=== PATIENT | male | born 1990 | race Caucasian/White ===

== ENCOUNTER 2016-09-30 14:28 | Emergency (ER) ==
[2016-09-30 14:37] VITALS: BP 135/76
[2016-09-30] MEDS ORDERED: XYLOCAINE-MPF 1% INJ ONE (16:30)
[2016-09-30] MEDS ORDERED: BOOSTRIX VACCINE IM ONE (16:32)
--- NOTE | 2016-09-30 16:36 | PROVIDER DOCUMENTATION ---
HPI-Rash/Wound/ReCheck - General Chief Complaint: Laceration[s] Stated Complaint: LAC TO HAND Time Seen by Provider: 09/30/16 16:05 Source: patient Allergies/Adverse Reactions: Allergies Allergy/AdvReac Type Severity Reaction Status Date / Time No Known Allergies Allergy Verified 03/13/15 15:01 Home Medications: Home Medication List Medication Instructions Recorded Confirmed Last Taken Type Azithromycin [Zithromax Z-Regino] 250 mg PO DIRECTED #1 pkg 03/13/15 Unknown Rx Ibuprofen [Motrin] 800 mg PO Q8H PRN PRN #20 tablet 03/13/15 Unknown Rx Sulfamethoxazole/Trimethoprim 1 each PO BID #10 tablet 09/30/16 Unknown Rx [Bactrim Ds Tablet] - History of Present Illness-Dermatology Nature of Presenting Problem: 25 y/o WM c/o lac to R hand x 1 hour. Pt states he accidentally cut it on sheet metal at work. States moderate bleeding, but now bleeding controlled. Unknown last tetanus. No other sxs reported. Review of Systems - Adult - REVIEW OF SYSTEMS - ADULT Constitutional: reports: no symptoms reported. denies: chills, fever Eyes: reports: no symptoms reported. denies: blurred vision, double vision Ears, Nose, Mouth & Throat: reports: no symptoms reported. denies: ear pain, nose pain Cardiovascular: reports: no symptoms reported. denies: chest pain, palpitations Respiratory: reports: no symptoms reported. denies: dyspnea on exertion, shortness of breath Gastrointestinal: reports: no symptoms reported. denies: abdominal pain, nausea , vomiting Genitourinary: reports: no symptoms reported. denies: dysuria, frequency Musculoskeletal: reports: no symptoms reported. denies: joint pain, joint swelling Integumentary: reports: see HPI, other. denies: nail changes, rash Neurological: reports: no symptoms reported. denies: numbness, paresthesia Psychiatric: reports: no symptoms reported Endocrine: reports: no symptoms reported. denies: cold intolerance, heat intolerance Hematologic/Lymphatic: reports: no symptoms reported. denies: easy bruising, prolonged bleeding Allergic/Immunologic: reports: no symptoms reported All Other Systems: Reviewed and Negative Past History - Adult - PAST MEDICAL HISTORY-ADULT Review of Records: reports: Nursing Assessment Review, Medications Reviewed Major Childhood Illnesses: reports: denies history - PRIOR SURGERIES/PROCEDURES Surgical/Procedure History: reports: none - IMMUNIZATION STATUS Childhood Immunizations: See Nurse Assessment Flu Vaccine: See Nurse Assessment Physical Exam-General - PHYSICAL EXAM-ADULT Initial Vital Signs Reviewed: Yes - CONSTITUTIONAL General Appearance: alert, mild distress - EYES Eyes: pink conjunctivae - HEAD, EARS, NOSE, MOUTH & THROAT HENMT: normocephalic/atraumatic, moist mucous membranes - NECK Neck: supple, normal inspection - RESPIRATORY Respiratory: no respiratory distress - CARDIOVASCULAR Cardiovascular: normal peripheral pulses, regular rate, rhythm - MUSCULOSKELETAL Back Exam: normal inspection Extremity: normal range of motion, normal capillary refill. negative: abnormal NV exam, pulse deficit - SKIN Integumentary: normal color, normal turgor, warm/dry, laceration(s) (3.5 cm to radial aspect of R hand, proximal to thumb) - NEUROLOGIC Neurologic: negative: aphasia, motor weakness, sensory deficit - PSYCHIATRIC Psych/Mental Status: normal mood/affect, normal thought content, normal thought process, oriented x 3 Progress - PLAN OF CARE/RESULTS Progress/Plan/Lab Results: Orders Category Date Time Status Laceration Set up DIRECTED Care 09/30/16 16:32 Active Diph,Pertuss(Acell),Tet Vac/Pf [Boostrix Vaccine] Med 09/30/16 16:32 Discontinued 0.5 ml IM .ONCE ONE Lidocaine 1% Pf [Xylocaine-Mpf 1%] Med 09/30/16 16:30 Discontinued 10 ml INJ NOW ONE Vital Signs Temp Pulse Resp BP Pulse Ox 09/30/16 14:36 97.6 F 87 18 135/76 100 No Known Allergies Allergy (Verified 03/13/15 15:01) Azithromycin [Zithromax Z-Regino] 250 mg PO DIRECTED #1 pkg 03/13/15 Ibuprofen [Motrin] 800 mg PO Q8H PRN PRN #20 tablet 03/13/15 Sulfamethoxazole/Trimethoprim [Bactrim Ds Tablet] 1 each PO BID #10 tablet 09/30 Discussed wound care and f/u with pt. Procedures - LACERATION/WOUND REPAIR/FB Right Hand Wound Length: 3.5 cm Wound's Depth, Shape: linear Wound Explored/Foreign Body: clean, no foreign body found Irrigated with Saline?: Yes Prepped with: Chlorhexidine Anesthetic: 1%, Lidocaine/Xylocaine Volume of Anesthetic (ml's): 7 Wound Repaired with: Sutures Suture Size/Type: 4.0, Non-Absorbable, Nylon Number of Sutures: 6 Layer Closure?: No Sterile Dressing Applied?: Yes Splint Applied?: No Sling Applied?: No Post Procedure Neurovascular Exam: Intact Procedure Comment: Pt tolerated well Departure - Departure Time of Disposition Order: 16:38 DIAGNOSIS: Laceration Disposition: HOME 01 Certified Medical Emergency: Emergent Condition: Stable Additional Instructions: Take medications as directed. Keep wound clean and dry. Return in 10-14 days for recheck. RICE as needed. ED Follow Up Instructions: You have been treated by a care provider in the Emergency Department. These instructions are being provided to you so you can have an understanding of how to care for yourself upon discharge. Upon discharge from the Emergency Department, you are responsible for making arrangements for follow-up care by a physician of your choice. Take all prescribed medications as directed. Return to the Emergency Department immediately for any new or worsening symptoms. You may call the Physician Referral phone number at [phone] to obtain a list of Physicians who are taking new patients. Prescriptions: Sulfamethoxazole/Trimethoprim [Bactrim Ds Tablet] 1 each PO BID #10 tablet Referrals: None,PCP [Primary Care Provider] - Instructions: Laceration Care, Adult, Laceration Care, Adult, [facility] Attestation - Physician/ EDITH Attestation Patient care was provided by Advanced Practice Provider:: Yes Advanced Practice Provider:: Katelyn Cardozo Advanced Practice Provider documentation review:: The Mid-level provider documentation, treatment plan and medical decision making was reviewed by the physician who agrees with all treatment and medical decision making by the MLP.
== END 2016-09-30 17:51 | disposition home or self-care (01) ==
LOC: ED 14:28
DX: S61.411A Laceration without foreign body of right hand, initial encounter (principal); X58.XXXA Exposure to other specified factors, initial encounter; Z23 Encounter for immunization
CPT/HCPCS: 90715